=== PATIENT | female | born 1955 | race Hispanic/Latino ===

== ENCOUNTER 2016-06-15 13:19 | Outpatient (CLI) | payer OTHER ==
--- NOTE | 2016-06-15 16:28 | Mammography Report ---
Screening mammogram: Routine views demonstrates a very dense and symmetrically distributed breast pattern occupying approximately 2/3 of each breast. There no clearly definable discrete mass however a mass could easily be obscured by this degree of density. No suspicious calcifications. The findings are not otherwise remarkable. There is no recent prior mammogram for comparison. CAD used. Impression: Extremely dense breast pattern. No suspicious findings. Recommendation: Breast palpation and bilateral screening breast ultrasound. If negative, annual mammogram followup. BI-RADS CATEGORY: 2 = Benign ACR BI-RADS MAMMOGRAPHIC CODES: 0 = Needs additional imaging evaluation; 1 = Negative; 2 = Benign; 3 = Probably benign; 4 = Suspicious; 5 = Malignant; 6 = Known biopsy-proven malignancy COMMENT: 1. Dense breast tissue, i.e., adenosis, fibrocystic changes, etc., may obscure an underlying neoplasm. 2. Approximately 10% of cancers are not detected with mammography. 3. A negative mammography report should not delay biopsy if a clinically suspicious mass is present.
== END 2016-06-15 13:20 | disposition home or self-care (01) ==
LOC: SPVWC 13:19
PROVIDERS: ATTEND Internal Medicine Pulmonary Disease
DX: Z12.31 Encounter for screening mammogram for malignant neoplasm of breast (principal)
CPT/HCPCS: 77067; G0202